=== PATIENT | male | born 1985 | race Hispanic/Latino ===

== ENCOUNTER 2022-01-11 11:06 | Emergency (ER) | payer SELFPAY ==
[~2022-01-11] VITALS: Ht 167.6 cm; Wt 87.0 kg
[2022-01-11 11:12] VITALS: BP 135/83
[2022-01-11 11:15] VITALS: BP 130/83
[2022-01-11 12:23] VITALS: BP 147/73
[2022-01-11 12:31] VITALS: BP 129/78
[2022-01-11 12:46] VITALS: BP 129/73
[2022-01-11] MEDS ORDERED: AMOXICILLIN500 MG PO (12:55)
[2022-01-11 13:01] VITALS: BP 146/75
== END 2022-01-11 12:36 | disposition home or self-care (01) | DRG 605 ==
LOC: ED 11:06
DX: S21.131A Puncture wound without foreign body of right front wall of thorax without penetration into thoracic cavity, initial encounter (principal); W29.4XXA Contact with nail gun, initial encounter; Y93.89 Activity, other specified; Y92.89 Other specified places as the place of occurrence of the external cause; Y99.0 Civilian activity done for income or pay